=== PATIENT | male | born 2000 | race African-American/Black ===

== ENCOUNTER 2019-09-27 13:11 | Emergency (ER) | payer BC, OTHER ==
[~2019-09-27] VITALS: Ht 177.8 cm; Wt 70.3 kg
[2019-09-27] MEDS ORDERED: NOHOMEMEDICATIONS (13:30)
[2019-09-27 13:48] LABS: URINE BILIRUBIN NEGATIVE (Negative); URINE BLOOD NEGATIVE (Negative); URINE CLARITY CLEAR; URINE COLOR YELLOW; URINE GLUCOSE-RANDOM* NEGATIVE (Negative); URINE KETONES NEGATIVE (Negative); URINE LEUKOCYTES-REFLEX NEGATIVE (Negative); URINE NITRITE-REFLEX NEGATIVE (Negative); URINE PROTEIN (DIPSTICK) NEGATIVE (Negative); URINE SPECIFIC GRAVITY >= 1.030 (1.005-1.035); URINE UROBILINOGEN 0.2 E.U./dl (0.2-1.0)
[2019-09-27 13:49] LABS: ABSOLUTE NEUTROPHILS 4.5 thou/uL (1.4-8.2); EOSINOPHILS 1.3 % (0.0-3.0); HEMATOCRIT 46.3 % (42.0-52.0); HEMOGLOBIN 15.8 gm/dL (14.0-18.0); MCH 32.4 pg (26.0-34.0); MCHC 34.2 g/dL (28.0-37.0); MCV 94.7 fL (80.0-100.0); MONOCYTES 6.9 % (1.0-8.0); POLYS 59.8 % (36.0-66.0); RBC 4.89 mil/uL (4.50-6.00); RDW 12.6 % (10.5-14.5); WBC 7.5 thou/uL (4.0-11.0)
[2019-09-27 13:57] LABS: CALCIUM 9.3 mg/dL (8.5-10.1); CREATININE 1.3 mg/dL (0.7-1.3); POTASSIUM 4.1 mmol/L (3.5-5.1)
[2019-09-27 14:03] LABS: ALBUMIN 4.8 g/dL (3.4-5.0); TOTAL PROTEIN 7.6 g/dL (6.4-8.2)
[2019-09-27 14:14] LABS: PLATELET COUNT 123 thou/uL (150-400)
[2019-09-27] MEDS ORDERED: OMEPRAZOLE40 MG PO (15:00)
[2019-09-27] MEDS ORDERED: CARAFATE 1 GM TA1 G1 PO (15:00)
[2019-09-27 15:04] VITALS: BP 117/60
== END 2019-09-27 15:16 | disposition home or self-care (01) ==
LOC: ER 13:11
PROVIDERS: Physician Assistant
DX: K29.70 Gastritis, unspecified, without bleeding (principal); R11.2 Nausea with vomiting, unspecified